=== PATIENT | female | born 1990 | race Caucasian/White ===

== ENCOUNTER → 2019-02-19 | Emergency (ER) | payer OTHER ==
[~2019-02-19] VITALS: Ht 157.5 cm; Wt 52.2 kg
== END | disposition home or self-care (01) ==
LOC: ER 17:08
DX: K52.9 Noninfective gastroenteritis and colitis, unspecified (principal)

== ENCOUNTER → 2021-03-11 | Emergency (ER) | payer OTHER ==
[~2021-03-11] VITALS: Ht 157.5 cm; Wt 52.2 kg
[~2021-03-11] MED LIST: FLUCONAZOLE150 MG PO
== END | disposition home or self-care (01) ==
LOC: ER 16:48
DX: N76.0 Acute vaginitis (principal); N39.0 Urinary tract infection, site not specified; B96.29 Other Escherichia coli [E. coli] as the cause of diseases classified elsewhere

== ENCOUNTER 2021-12-22 16:34 | Emergency (ER) | payer OTHER ==
[~2021-12-22] VITALS: Ht 157.5 cm; Wt 53.5 kg
[2021-12-22] MEDS ORDERED: MIRALAX510 GM PO (16:43)
== END 2021-12-22 18:41 | disposition home or self-care (01) ==
LOC: ER 16:34
DX: O20.8 Other hemorrhage in early pregnancy (principal); Z3A.00 Weeks of gestation of pregnancy not specified

== ENCOUNTER 2021-12-24 14:51 | Outpatient (CLI) | payer OTHER ==
[~2021-12-24 14:51] MED LIST changes: +MIRALAX510 GM PO
== END 2021-12-24 14:57 | disposition home or self-care (01) ==
LOC: LAB 14:51
PROVIDERS: ATTEND Obstetrics & Gynecology
DX: O02.1 Missed abortion (principal)

== ENCOUNTER 2022-12-03 14:58 | Outpatient (CLI) | payer OTHER | END 2022-12-03 16:28 | disposition home or self-care (01) | LOC: PRENATAL 14:58 | PROVIDERS: ATTEND Obstetrics & Gynecology Maternal & Fetal Medicine | DX: O35.3XX0 Maternal care for (suspected) damage to fetus from viral disease in mother, not applicable or unspecified (principal); O44.00 Complete placenta previa NOS or without hemorrhage, unspecified trimester; O34.10 Maternal care for benign tumor of corpus uteri, unspecified trimester; Z3A.19 19 weeks gestation of pregnancy ==

== ENCOUNTER 2023-03-01 15:28 | Outpatient (CLI) | payer OTHER | END 2023-03-01 15:29 | disposition home or self-care (01) | LOC: PRENATAL 15:28 | PROVIDERS: ATTEND Obstetrics & Gynecology Maternal & Fetal Medicine | DX: O26.849 Uterine size-date discrepancy, unspecified trimester (principal); O36.8199 Decreased fetal movements, unspecified trimester, other fetus; Z3A.32 32 weeks gestation of pregnancy ==

== ENCOUNTER 2023-04-06 07:48 | Outpatient (CLI) | payer OTHER | END 2023-04-06 08:35 | disposition home or self-care (01) | LOC: NST 07:48 | PROVIDERS: ATTEND Student in an Organized Health Care Education/Training Program | DX: Z34.83 Encounter for supervision of other normal pregnancy, third trimester (principal) ==

== ENCOUNTER 2023-04-18 09:05 | Inpatient (IN) | payer OTHER ==
[~2023-04-18] VITALS: Ht 157.5 cm; Wt 64.9 kg
[2023-04-18 10:27] LABS: HEMATOCRIT 31.5 % (36.0-45.00); HEMOGLOBIN 11.1 g/dL (12.0-15.00); MEAN CELL VOLUME 90.6 fL (80.00-100.00); MEAN CORPUSCULAR HEMOGLOBIN 31.9 pg (27.00-32.0); MEAN CORPUSCULAR HGB CONC 35.2 g/dl (32.0-36.0); PLATELET COUNT 306 K/uL (150-450); RED BLOOD COUNT 3.48 M/uL (4.00-6.00); RED CELL DISTRIBUTION WIDTH 13.5 % (11.5-14.5)
[2023-04-18 10:31] LABS: PH,URINE 7.5 (5.0-8.0); URINE APPEARANCE Clear; URINE BILIRRUBIN Negative (NEGATIVE); URINE BLOOD Negative; URINE COLOR Yellow; URINE GLUCOSE Negative (NEGATIVE); URINE LEUKOCYTE Negative; URINE NITRATE Negative; URINE PROTEIN Negative (NEGATIVE); URINE UROBILINOGEN 0.2 E.U./dl
[2023-04-18 10:33] LABS: URINE BACTERIA 205.3 uL (0.0-1933); URINE WBC 7.7 uL (0.0-23.2)
[2023-04-18 10:34] LABS: URINE RBC 0.5 uL (0.0-20.8)
[2023-04-18] MEDS ORDERED: PROTONIX20 MG PO (10:38)
[2023-04-18] MEDS ORDERED: PRENATAL TABLE1 EAC1 PO (10:38)
[2023-04-18 10:55] LABS: INR < 0.93; PARTIAL THROMBOPLASTIN TIME 24.8 SECONDS (22.0-34.0); PROTHROMBIN TIME 9.5 SECONDS (9.0-11.5)
[2023-04-18 11:16] LABS: ALBUMIN 3.1 gm/dL (3.4-5.0); BILIRUBIN TOTAL 0.27 mg/dL (0.3-1.2); CALCIUM 9.7 mg/dL (8.5-10.1); CREATININE SERUM 0.52 mg/dL (0.55-1.02); GFR 135.8; GLOBULINA 3.7 G/DL (2.4-3.5); POTASSIUM 4.89 mEq/L (3.5-5.1); TOTAL PROTEIN 6.8 gm/dL (6.4-8.2)
[2023-04-20 19:21] LABS: HEMATOCRIT 27.9 % (36.0-45.00); HEMOGLOBIN 9.8 g/dL (12.0-15.00); MEAN CELL VOLUME 91.4 fL (80.00-100.00); MEAN CORPUSCULAR HEMOGLOBIN 32.2 pg (27.00-32.0); MEAN CORPUSCULAR HGB CONC 35.2 g/dl (32.0-36.0); PLATELET COUNT 261 K/uL (150-450); RED BLOOD COUNT 3.05 M/uL (4.00-6.00); RED CELL DISTRIBUTION WIDTH 13.5 % (11.5-14.5)
== END 2023-04-22 15:13 | disposition home or self-care (01) | DRG 807 ==
LOC: LDR 09:05 → OB/GYN 04-20 09:49
PROVIDERS: Obstetrics & Gynecology; ADMIT Obstetrics & Gynecology; ATTEND Obstetrics & Gynecology
PROC: 3E0P7VZ Introduction of Hormone into Female Reproductive, Via Natural or Artificial Opening (ICD-10-PCS; 2023-04-18)
PROC: 4A1HXCZ Monitoring of Products of Conception, Cardiac Rate, External Approach (ICD-10-PCS; 2023-04-18)
PROC: 10E0XZZ Delivery of Products of Conception, External Approach (ICD-10-PCS; principal; 2023-04-20)
PROC: 0HQ9XZZ Repair Perineum Skin, External Approach (ICD-10-PCS; 2023-04-20)
PROC: 3E033VJ Introduction of Other Hormone into Peripheral Vein, Percutaneous Approach (ICD-10-PCS; 2023-04-20)
DX: O70.0 First degree perineal laceration during delivery (principal); Z37.0 Single live birth; Z3A.39 39 weeks gestation of pregnancy; Z20.822 Contact with and (suspected) exposure to COVID-19